=== PATIENT | female | born 1980 | race Caucasian/White ===

== ENCOUNTER 2017-09-02 17:40 | Emergency (ER) | payer MEDICAID ==
[2017-09-02] MEDS: ONDANSETRON (ODT) 4 MG TAB ODT (20:34)
== END 2017-09-02 20:43 | disposition home or self-care (01) ==
LOC: E/R 17:40
DX: F10.120 Alcohol abuse with intoxication, uncomplicated (principal)
CPT/HCPCS: 82962; 99283